=== PATIENT | male | born 1990 | race Hispanic/Latino ===

== ENCOUNTER 2017-01-21 20:39 | Emergency (ER) | payer SELFPAY ==
[~2017-01-21] VITALS: Ht 172.7 cm; Wt 70.0 kg
[2017-01-21 21:08] LABS: HEMATOCRIT 37.2 % (39.0-50.0); HEMOGLOBIN 13.5 g/dl (14.0-18.0); IMMATURE GRANULOCYTES 0.2 % (0.0-1.0); MEAN CORPUSCULAR HGB 32.3 pG CALC (26.0-32.0); MEAN CORPUSCULAR HGB CONC 36.3 g/L CALC (32.0-36.0); NEUT# 2.58 thou/uL (1.82-7.42); RED BLOOD COUNT 4.18 mill/uL (4.70-6.10); RED CELL DISTRI WIDTH 12.5 % (11.5-15.5)
[2017-01-21 21:16] LABS: URINE BILIRUBIN - DIPSTICK NEGATIVE (NEGATIVE); URINE BLOOD DIPSTICK NEGATIVE (NEGATIVE); URINE COLOR YELLOW; URINE GLUCOSE - DIPSTICK NEGATIVE (NEGATIVE); URINE KETONE NEGATIVE (NEGATIVE); URINE LEUK ESTERASE NEGATIVE (NEGATIVE); URINE NITRITE - DIPSTICK NEGATIVE (Negative); URINE PROTEIN - DIPSTICK NEGATIVE (NEG-TRACE); URINE UROBILINOGEN - DIPSTICK 0.2 E.U./dL (0.2)
[2017-01-21 21:17] LABS: URINE CLARITY CLEAR
[2017-01-21 21:19] LABS: BARBITURATES NEGATIVE (NEGATIVE); COCAINE POSITIVE (NEGATIVE); METHADONE NEGATIVE (NEGATIVE); TETRAHYDROCANNABIONOL NEGATIVE (NEGATIVE); TRICYLIC ANTIDEPRESSANTS NEGATIVE (NEGATIVE)
[2017-01-21 21:20] LABS: OXCYCODONE NEGATIVE (NEGATIVE)
[2017-01-21 21:20] LABS: ALBUMIN 4.7 g/dL (3.2-5.0); ALKALINE PHOSPHATASE 152 u/l (38-126); ANION GAP 19 (6-22 (CALC)); BILIRUBIN, TOTAL 0.7 mg/dL (0.0-1.4); BUN 11 mg/dL (9-20); BUN/CREATININE RATIO 15 (12-20 (CALC)); CALCIUM 9.3 mg/dL (8.4-10.2); CARBON DIOXIDE 23 mmol/l (22-30); CHLORIDE 106 mmol/l (95-108); CREATININE 0.7 mg/dL (0.7-1.3); GFR > 60 ML/MIN (>=60 (CALC)); GFR FOR AFR.AMER. > 60 ML/MIN (>=60 (CALC)); GLUCOSE 121 mg/dL (75-110); POTASSIUM 3.7 mmol/l (3.5-5.1); SGOT/AST 301 u/l (17-59); SGPT/ALT 149 u/l (21-72); SODIUM 145 mmol/l (137-146); TOTAL PROTEIN 7.9 g/dL (6.3-8.2)
[2017-01-21 21:32] LABS: MYOGLOBIN 33 ng/mL (0 - 121)
[2017-01-21 22:42] VITALS: BP 134/78
== END 2017-01-21 22:45 | disposition home or self-care (01) | DRG 310 ==
LOC: ED 20:39
PROVIDERS: Emergency Medicine
DX: R00.2 Palpitations (principal); K70.10 Alcoholic hepatitis without ascites; F10.129 Alcohol abuse with intoxication, unspecified; F14.90 Cocaine use, unspecified, uncomplicated

== ENCOUNTER 2018-06-22 22:52 | Emergency (ER) | payer SELFPAY ==
[~2018-06-22] VITALS: Ht 172.7 cm; Wt 76.0 kg
[2018-06-23 00:30] VITALS: BP 138/80
== END 2018-06-23 00:30 | disposition home or self-care (01) | DRG 151 ==
LOC: ED 22:52
DX: R04.0 Epistaxis (principal)

== ENCOUNTER 2018-07-03 01:38 | Emergency (ER) | payer SELFPAY ==
[~2018-07-03] VITALS: Ht 172.7 cm; Wt 77.6 kg
[2018-07-03 02:20] LABS: URINE BILIRUBIN - DIPSTICK NEGATIVE (NEGATIVE); URINE BLOOD DIPSTICK NEGATIVE (NEGATIVE); URINE COLOR YELLOW; URINE GLUCOSE - DIPSTICK NEGATIVE (NEGATIVE); URINE KETONE NEGATIVE (NEGATIVE); URINE LEUK ESTERASE NEGATIVE (NEGATIVE); URINE NITRITE - DIPSTICK NEGATIVE (Negative); URINE PROTEIN - DIPSTICK NEGATIVE (NEG-TRACE); URINE SPECIFIC GRAVITY <=1.005; URINE UROBILINOGEN - DIPSTICK 0.2 E.U./dL (0.2)
[2018-07-03 02:31] LABS: ALBUMIN 4.2 g/dL (3.2-5.0); ALKALINE PHOSPHATASE 227 u/l (38-126); AMYLASE 38 u/l (30-110); ANION GAP 16 (6-22 (CALC)); BILIRUBIN, TOTAL 0.8 mg/dL (0.0-1.4); BUN 4 mg/dL (9-20); BUN/CREATININE RATIO 6 (12-20 (CALC)); CARBON DIOXIDE 23 mmol/l (22-30); CHLORIDE 109 mmol/l (95-108); CREATININE 0.6 mg/dL (0.7-1.3); GFR > 60 ML/MIN (>=60 (CALC)); GFR FOR AFR.AMER. > 60 ML/MIN (>=60 (CALC)); LIPASE 157 u/l (23-300); POTASSIUM 3.7 mmol/l (3.5-5.1); SGOT/AST 326 u/l (17-59); SODIUM 145 mmol/l (137-146); TOTAL PROTEIN 7.6 g/dL (6.3-8.2)
[2018-07-03 02:44] LABS: IMMATURE GRANULOCYTES 2.1 % (0.0-5.0); MEAN CORPUSCULAR HGB 32.5 pG CALC (26.0-32.0); MEAN CORPUSCULAR HGB CONC 33.1 g/L CALC (32.0-36.0); NEUT# 5.19 thou/uL (1.82-7.42); RED BLOOD COUNT 3.14 mill/uL (4.70-6.10); RED CELL DISTRI WIDTH 14.8 % (11.5-15.5)
[2018-07-03 02:48] LABS: HEMATOCRIT 30.8 % (39.0-50.0); HEMOGLOBIN 10.2 g/dl (14.0-18.0); MEAN CELL VOLUME 98.1 fL CALC (80.0-100.0)
[2018-07-03] MEDS ORDERED: PROTONIX40 MG PO (06:16)
[2018-07-03 06:30] VITALS: BP 107/61
== END 2018-07-03 06:30 | disposition home or self-care (01) | DRG 392 ==
LOC: ED 01:38
PROVIDERS: Emergency Medicine
DX: R10.11 Right upper quadrant pain (principal); R11.0 Nausea; K76.0 Fatty (change of) liver, not elsewhere classified
CPT/HCPCS: Q9967; S0164

== ENCOUNTER 2019-08-17 09:16 | Inpatient (IN) | payer MEDICAID ==
[~2019-08-17] VITALS: Ht 172.7 cm; Wt 72.7 kg
[~2019-08-17 09:16] MED LIST: PROTONIX40 MG PO
--- NOTE | 2019-08-17 09:28 | NUR ---
PT TO ROOM WITH A STEADY GAIT.
--- NOTE | 2019-08-17 09:40 | NUR ---
PT ASSESSED. PT GAMBIAN SPEAKING ONLY. PUMP OPERATOR BYPRODUCTS PRESENT FOR TRIAGE. PT AO X 3. REPORTS COUGH SINCE WEDNESDAY. PT SKIN PALE AND SLIGHTLY DIAPHORETIC. RESP RATE 40. BREATH SOUNDS CLEAR AND EQUAL BILAT. O2 SAT 92
[2019-08-17 10:07] LABS: HEMATOCRIT 33.3 % (39.0-50.0); HEMOGLOBIN 11.3 g/dl (14.0-18.0); IMMATURE GRANULOCYTES 0.8 % (0.0-5.0); MEAN CORPUSCULAR HGB 30.1 pG CALC (26.0-32.0); MEAN CORPUSCULAR HGB CONC 33.9 g/dL CAL (32.0-36.0); NEUT# 6.1 thou/uL (1.82-7.42); RED BLOOD COUNT 3.76 mill/uL (4.70-6.10); RED CELL DISTRI WIDTH 12.5 % (11.5-15.5)
[2019-08-17 10:17] LABS: MEAN CELL VOLUME 88.6 fL CALC (80.0-100.0)
[2019-08-17 10:22] LABS: ALBUMIN 4.4 g/dL (3.2-5.0); ALKALINE PHOSPHATASE 168 u/l (38-126); BUN 12 mg/dL (9-20); BUN/CREATININE RATIO 13 (12-20 (CALC)); CARBON DIOXIDE 22 mmol/l (22-30); CHLORIDE 102 mmol/l (95-108); CREATININE 0.9 mg/dL (0.7-1.3); GFR > 60 ML/MIN (>=60 (CALC)); GFR FOR AFR.AMER. > 60 ML/MIN (>=60 (CALC)); POTASSIUM 3.6 mmol/l (3.5-5.1); SGOT/AST 91 u/l (17-59); TOTAL PROTEIN 8.5 g/dL (6.3-8.2)
--- NOTE | 2019-08-17 10:45 | NUR ---
PT RESTING ON STRETCHER AWAITING RESULTS. AT BEDSIDE
[2019-08-17 10:50] LABS: ANION GAP 15 (6-22 (CALC)); BILIRUBIN, TOTAL 0.4 mg/dL (0.0-1.4); SODIUM 135 mmol/l (137-146)
--- NOTE | 2019-08-17 11:34 | NUR ---
PT IN CT
--- NOTE | 2019-08-17 12:42 | NUR ---
PT RESTING ON STRETCHER. ANTIBIOTICS INFUSING. AT BEDSIDE
--- NOTE | 2019-08-17 13:30 | NUR ---
PATIENTS PLACED IN PRONE POSITION PER DR MCGEE INSTRUCTION.
[2019-08-17 13:43] LABS: C-REACTIVE PROTEIN 7.7 mg/dL (0-0.9)
--- NOTE | 2019-08-17 14:40 | NUR ---
PT RESTING COMFORTABLY ON STOMACH. AWAITING ADMISSION
--- NOTE | 2019-08-17 15:35 | NUR ---
REPEAT LACTIC ACID DRAWN
--- NOTE | 2019-08-17 15:58 | NUR ---
SBAR PRINTED TO FLOOR
--- NOTE | 2019-08-17 16:19 | NUR ---
ICU UNABLE TO TAKE REPORT AT THIS TIME
--- NOTE | 2019-08-17 17:03 | NUR ---
REPORT GIVEN TO KITTY KEVIN ICU
--- NOTE | 2019-08-17 17:23 | NUR ---
PT ARRIVED TO ICU FROM ER VIA STRETCHER, AFEBRILE ALERT AND ORIENTED X4, ABLE TO WALK TO BED WITHOUT EXERTION, ON 2 LT OF OXYGEN VIA NC, DENIES PAIN AND DISCOMFORT AT THIS TIME. ORIENTED TO ROOM AND CALL LIGHT. ASKED TO CALL BEFORE GETTING OUT OF BED.
--- NOTE | 2019-08-17 17:25 | NUR ---
PT TAKEN VIA STRETCHER MONITOR IN PLACE TO ICU
--- NOTE | 2019-08-17 19:05 | NUR ---
REPORT RECEIVED FROM Shweta WILLS RN, CARE OF PT ASSUMED @ THIS TIME.
[2019-08-17 20:00] VITALS: BP 108/65
--- NOTE | 2019-08-17 20:00 | NUR ---
UPON ENTERING ROOM PT RESTING IN BED IN A SEMI-SMITH POSITION. PHYSICAL ASSESMENT COMPLETE. RESPIRATIONS REGULAR AND UNLABORED. NO APPARENT DISTRESS OR DISCOMFORT. AFEBRILE. HEMODYNAMICS STABLE. PLAN OF CARE REVIEWED. PT VERBALIZES UNDERSTANDING. DENIES QUESTIONS. PT EDUCATED TO LAY PRONE OFTEN POSSIBLE. PT VERBALIZES UNDERSTANDING AND AGREES. DINNER TRAY AND FRESH WATER PROVIDED. PT DENIES FURTHER NEEDS. CALL FRAGA WITHIN REACH. AGREES TO CALL PRN.
[2019-08-17 22:00] VITALS: BP 115/56
[2019-08-18] VITALS (12 sets, daily range): BP systolic 100–121; BP diastolic 50–71
--- NOTE | 2019-08-18 00:23 | NUR ---
PT APPEARS TO BE SLEEPING COMFORTABLY, NO APPARENT DISTRESS, RESPIRATIONS REGULAR AND UNLABORED. SB-SR 50'S-60'S ON WASH AND GREASER. NIBP STABLE/WNL. SpO2 97% ON O2 @ 2L VIA NC. PT IS LAYING SUPINE/ SEMI-FOWLERS DESPITE AGREEING TO LAY PRONE WHEN POSSIBLE.
--- NOTE | 2019-08-18 04:25 | NUR ---
AM LABS DRAWN. 400ML CLEAR YELLOW URINE EMPTIED FROM URINAL. PT DENIES NEEDS @ THIS TIME. CALL PHILLY ULRICH WITHIN REACH, AGREES TO CALL JOAQUIN.
[2019-08-18 05:58] LABS: BASO% 0 % (0-3); EOS% 0 % (0-8); HEMATOCRIT 31.5 % (39.0-50.0); HEMOGLOBIN 10.6 g/dl (14.0-18.0); IMMATURE GRANULOCYTES 1.1 % (0.0-5.0); LYMPH% 23 % (15-41); MEAN CELL VOLUME 89.5 fL CALC (80.0-100.0); MEAN CORPUSCULAR HGB 30.1 pG CALC (26.0-32.0); MEAN CORPUSCULAR HGB CONC 33.7 g/dL CAL (32.0-36.0); MONO% 6 % (2-13); NEUT# 2.52 thou/uL (1.82-7.42); NEUT% 70 % (42-76); PLATELET COUNT 325 thou/uL (130-400); RED BLOOD COUNT 3.52 mill/uL (4.70-6.10); RED CELL DISTRI WIDTH 12.7 % (11.5-15.5)
[2019-08-18 06:06] LABS: ALKALINE PHOSPHATASE 141 u/l (38-126); BILIRUBIN, TOTAL 0.3 mg/dL (0.0-1.4); BUN 12 mg/dL (9-20); BUN/CREATININE RATIO 23 (12-20 (CALC)); C-REACTIVE PROTEIN 7.2 mg/dL (0-0.9); CARBON DIOXIDE 19 mmol/l (22-30); CHLORIDE 109 mmol/l (95-108); CREATININE 0.5 mg/dL (0.7-1.3); GFR > 60 ML/MIN (>=60 (CALC)); GFR FOR AFR.AMER. > 60 ML/MIN (>=60 (CALC)); SGOT/AST 58 u/l (17-59); SODIUM 137 mmol/l (137-146); TOTAL PROTEIN 6.8 g/dL (6.3-8.2)
[2019-08-18 06:09] LABS: ALBUMIN 3.5 g/dL (3.2-5.0); ANION GAP 13 (6-22 (CALC)); POTASSIUM 4.4 mmol/l (3.5-5.1)
--- NOTE | 2019-08-18 06:50 | NUR ---
REPORT RECEIVED FROM NIGHT NURSE, PT RESTING IN BED, ALL VSS, WILL CONTINUE TO MONITOR.
--- NOTE | 2019-08-18 07:20 | NUR ---
PT UP TO BATHROOM, 1 BM.
--- NOTE | 2019-08-18 08:00 | NUR ---
PT ASSESSED IN BED, ALERT AND ORIENTED X4, MOVES ALL EXTREMITIES. DENIES PAIN OR DISCOMFORT AT THIS TIME. SEE PROCESS INTERVENTIONS FOR FULL ASSESSMENT.
--- NOTE | 2019-08-18 08:30 | NUR ---
DR MCGEE AT BEDSIDE
--- NOTE | 2019-08-18 10:00 | NUR ---
PT RESTING IN BED IN PRONE POSITION, DENIES PAIN OR DISCOMFORT AT THIS TIME.
--- NOTE | 2019-08-18 11:40 | NUR ---
LUNCH AT BEDSIDE, PT RESTING IN BED IN PRONE POSITION. ALL VSS, WILL CONTINUE TO MONITOR.
--- NOTE | 2019-08-18 12:00 | NUR ---
PT ASSESSED, ALERT AND ORIENTED X4, MOVES ALL EXTREMITIES. DENIES PAIN OR DISCOMFORT, AFEBRILE TEMP OF 97.4 TEMPORAL, ON 2LT VIA NC, SATS IN MID 90'S. DENIES PAIN OR DISCOMFORT AT THIS TIME. CALL LIGHT WITHIN REACH, WILL CONTINUE TO MONITOR.
--- NOTE | 2019-08-18 14:00 | NUR ---
PT UP TO BATHROOM, 1BM. BACK TO BED IN PRONE POSITION.
[2019-08-18] MEDS ORDERED: ALBUTEROL108 MCG/AC IN (14:06)
[2019-08-18] MEDS ORDERED: TESSALON PERLE100 MG PO (14:11)
--- NOTE | 2019-08-18 16:00 | NUR ---
PT RESTING IN BED IN PRONE POSITION, DINNER AT BEDSIDE.
--- NOTE | 2019-08-18 18:00 | NUR ---
PT LEADS OFF, IN TO CHANGE ALL LEADS. PT DENIES PAIN OR DISCOMFORT AT THIS TIME. WILL CONTINUE TO MONITOR.
--- NOTE | 2019-08-18 19:07 | NUR ---
REPORT GIVEN BY JAG. PATIENT LAYING PRONE IN BED. RESP EVEN AND UNLABORED, 2L VIA NC. NO S/S OF DISTRESS NOTED. PATIENT INFORMED TO CALL WITH ANY QUESTIONS OR CONCERNS. PLAN OF CARE DISCUSSED.FALL PRECATUIONS IN PLACE.
--- NOTE | 2019-08-18 22:00 | NUR ---
PATIENT IN BED WATCHING TV. RESP EVEN AND UNLABORED. NO S/S OF DISTRESS NOTED.
--- NOTE | 2019-08-18 23:15 | NUR ---
patient up to the bathroom.
[2019-08-19] VITALS (14 sets, daily range): BP systolic 110–126; BP diastolic 38–73
--- NOTE | 2019-08-19 03:13 | NUR ---
PATIENT RESTING WITH EYES CLOSED. RESP EVEN AND UNLABORED. NO S/S OF DISTRSS.
--- NOTE | 2019-08-19 04:42 | NUR ---
MORNING LABS DRAWN
--- NOTE | 2019-08-19 07:40 | NUR ---
pt resting in bed with eyes closed; easily aroused; D DORITA Jacobs present at bedside to interpret; pt alert and oriented; denies pain; no n/v noted; resp even and unlabored; lungs clear; skin color wnl; o2 per nc at 2L; frequent coughing noted; pt states yellow sputum/ not observed per procedure writer; covid 19+ explained; hr reg; strong pulses; no edema noted; sb on monitor; abd soft with bs present; no bm noted per procedure writer; pt admits to voiding without complication; no urine to inspect at this time; urinal at bedside; #20 flushed and patent to rac; plan of care/ meds explained; pt explained to lay in prone position; call light within reach; will continue to monitor
--- NOTE | 2019-08-19 08:05 | NUR ---
awake in bed eating breakfast; no apparent distress noted; sb on monitor; call light within reach; will continue to monitor
[2019-08-19 09:30] LABS: BASO% 0 % (0-3); EOS% 0 % (0-8); HEMATOCRIT 32.3 % (39.0-50.0); HEMOGLOBIN 10.9 g/dl (14.0-18.0); IMMATURE GRANULOCYTES 1.1 % (0.0-5.0); LYMPH% 14 % (15-41); MEAN CELL VOLUME 89.5 fL CALC (80.0-100.0); MEAN CORPUSCULAR HGB 30.2 pG CALC (26.0-32.0); MEAN CORPUSCULAR HGB CONC 33.7 g/dL CAL (32.0-36.0); MONO% 4 % (2-13); NEUT# 6.43 thou/uL (1.82-7.42); NEUT% 81 % (42-76); PLATELET COUNT 363 thou/uL (130-400); RED BLOOD COUNT 3.61 mill/uL (4.70-6.10); RED CELL DISTRI WIDTH 12.8 % (11.5-15.5)
[2019-08-19 09:42] LABS: ALBUMIN 3.3 g/dL (3.2-5.0); ALKALINE PHOSPHATASE 140 u/l (38-126); ANION GAP 12 (6-22 (CALC)); BILIRUBIN, TOTAL 0.2 mg/dL (0.0-1.4); BUN 16 mg/dL (9-20); BUN/CREATININE RATIO 27 (12-20 (CALC)); C-REACTIVE PROTEIN 3.3 mg/dL (0-0.9); CARBON DIOXIDE 19 mmol/l (22-30); CHLORIDE 110 mmol/l (95-108); CREATININE 0.6 mg/dL (0.7-1.3); GFR > 60 ML/MIN (>=60 (CALC)); GFR FOR AFR.AMER. > 60 ML/MIN (>=60 (CALC)); POTASSIUM 4.4 mmol/l (3.5-5.1); SGOT/AST 127 u/l (17-59); SODIUM 137 mmol/l (137-146); TOTAL PROTEIN 6.3 g/dL (6.3-8.2)
--- NOTE | 2019-08-19 10:06 | NUR ---
awake in prone position talking on cell phone; no apparent distress noted; sb on monitor; o2 per nc; call light within reach; will continue to monitor
--- NOTE | 2019-08-19 11:59 | NUR ---
awake sitting on side of bed eating lunch; no apparent distress noted; denies pain; sb on monitor; iv patent with abt infusing withuot complication; no redness or edema noted at site; afebrile; monitoring attachments disconnected for pt to ambulate to bathroom; call light within reach; will continue to monitor
--- NOTE | 2019-08-19 14:25 | NUR ---
awake in bed; no apparent distress noted; sb on monitor; iv patent; call light within reach; will continue to monitor
--- NOTE | 2019-08-19 16:06 | NUR ---
pt awake in bed; no apparenyt distress noted; pt admits to upset stomach; points to [place] on food tray; iv intact and patent; no redness or edema noted at site; sb on monitor; call light within reach; will continue to monitor
--- NOTE | 2019-08-19 17:49 | NUR ---
awake in bed conversing on cell phone; no apparent distress noted; sb on monitor; iv intact and patent; dinner tray at bedside; prone position encouraged after dinner; call light within reach
--- NOTE | 2019-08-19 20:30 | NUR ---
RESTING IN BED IN PRONE POSITON. RESP NON-LABORED. LUNGS CLEAR. O2 ON AT 2 L NC. O2 SAT 98-99% IV SITE IN RAC WITH NS AT O, SITE HEALTHY. SB ON MONITOR. DENIES NEEDS AT THIS TIME. TAKING PO FLUIDS WELL. INSTRUCTED TO REST IN PRONE POSITON MUCH POSSIBLE. PATIENT NODS HEAD IN UNDERSTANDIG. CALL FRAGA IN REACH.
--- NOTE | 2019-08-19 22:00 | NUR ---
RESTING IN BED IN PRONE POSTION. O2 SATS 100% SB ON MONITOR.
--- NOTE | 2019-08-19 23:57 | NUR ---
PATIENT RESTING IN PRONE POSTIONE WITH EYES CLOSED. RESP NON-LABORED. O2 IN USE WITH O2 SAT 100%. SB ON MONITOR.
[2019-08-20] VITALS (10 sets, daily range): BP systolic 111–149; BP diastolic 55–84
--- NOTE | 2019-08-20 02:00 | NUR ---
SLEEPING. NO CHAGES TO REPORT.
--- NOTE | 2019-08-20 04:30 | NUR ---
AWAKENS TO NAME. BLOOD DRAWN FOR AM LABS VIA PERIPHERAL STICK IN LFA. DENIES DISCOMFORTS. VSS. RESP NON-LABORED. SB ON MONITOR.
[2019-08-20 05:27] LABS: ANION GAP 12 (6-22 (CALC)); BUN 13 mg/dL (9-20); BUN/CREATININE RATIO 21 (12-20 (CALC)); CARBON DIOXIDE 21 mmol/l (22-30); CHLORIDE 109 mmol/l (95-108); CREATININE 0.6 mg/dL (0.7-1.3); GFR > 60 ML/MIN (>=60 (CALC)); GFR FOR AFR.AMER. > 60 ML/MIN (>=60 (CALC)); POTASSIUM 3.9 mmol/l (3.5-5.1); SODIUM 138 mmol/l (137-146)
--- NOTE | 2019-08-20 05:52 | NUR ---
PATIENT HAS SLEPT IN PRONE POSITION MOST OF THE NIGHT. MAITINING O2 SATS 97-100%
--- NOTE | 2019-08-20 07:50 | NUR ---
pt awake in bed; no apparent distress noted; pt offers no complaints; assessment completed at this time; A DORITA Zazueta to interpret; pt alert and oriented; denies pain; admits to feeling good; resp even and unlabored; lungs clear; skin color wnl; o2 per nc at 2L; GREASE MONKEY harsh cough noted; hr reg; strong pulses; no edema noted; sb on monitor; abd soft with bs present; no bm noted per typewriter tester; pt voiding cl yellow urine without complication; urinal at bedside; #20 patent to rac with ivf at [facility]; no redness or edema noted at site; plan of care/ meds explained; po fluids provided; call light within reach; will continue to monitor
--- NOTE | 2019-08-20 08:02 | NUR ---
awake in bed eating breakfast; no apparent distress noted; call light within reach; will continue to monitor
--- NOTE | 2019-08-20 09:08 | NUR ---
awake in bed; offers no complaints; am meds explained and administered; call light within reach
--- NOTE | 2019-08-20 10:15 | NUR ---
awake in bed; no apparent distress noted; iv intact and patent; sb on monitor; call light within reach; will continue to monitor
--- NOTE | 2019-08-20 11:50 | NUR ---
awake in bed; lunch provided; pt disconnected from monitoring attachments to use bathroom; transfer to med surg explained; iv intact and patent; no redness or edema noted at site; pt offers no complaints; call light within reach; will continue to monitor
--- NOTE | 2019-08-20 12:22 | NUR ---
report called to Master Rausch LPN; pt to be transferred to med surg tele [id number]
--- NOTE | 2019-08-20 12:56 | NUR ---
PT ARRIVED TO MS2 VIA WHEELCHAIR ACCOMPANIED BY ICU NURSE. ORIENTED PT TO ROOM AND CALL LIGHT, DISCUSSED POC. PT REQUESTING TO SHOWER. IV COVERED AND ASSISTED TO SHOWER. PT VOICES NO NEEDS OR COMPLAINTS AT THIS TIME. CALL LIGHT IN REACH,CONTINUE TO MONITOR.
--- NOTE | 2019-08-20 13:00 | NUR ---
pt transferred to med surg tele room 282 via wc in stable condition; pt belongings with pt; bedside update provided to Master Rausch LPN
--- NOTE | 2019-08-20 14:11 | NUR ---
PT IN RECLINER AT BEDSIDE, VOICES NO NEEDS OR COMPLAINTS AT THIS TIME. CALL LIGHT IN REACH,CONTINUE TO MONITOR.
--- NOTE | 2019-08-20 22:32 | NUR ---
pt in bed with eyes open. speaks occitan and staff to assist with interpretation. medications given and tolerated well. continent of b/b anf had bowel movement today with no complications . respiration are even and non labored. non productive cough noted. call light within reach and bed in lowest position.
--- NOTE | 2019-08-21 01:41 | NUR ---
PT IN BED WITH EYES CLOSED. PT CONTINUES ON TELEMETRY AND SHOWING SINUS BRADYCARDIA AT 43. PT WAS REPOSITIONED IN BED AND HOB ELEVATED AND HEART RATE IMPROVED. PT DENIES PAIN OR DISCOMFORT. NO RESPIRATORY DISTRESS NOTED. PT HAS NON PRODUCTIVE COUGH NOTED. BED IN LOWEST POSITION AND CALL LIGHT WITHIN REACH. WILL CONTINUE TO OBSERVE.
[2019-08-21 04:20] VITALS: BP 136/75
--- NOTE | 2019-08-21 04:49 | NUR ---
pt in bed with eyes closed and easily aorused. fluids given and tolerated well. continues on telemetry with SB at 49. pt denies any discomfort or concerns. Continues with non productive cough. continent of b/b and ambulates to toilet with no complications. call light is within reach and bed jessica lowest position. will continue to observe.
[2019-08-21 10:46] VITALS: BP 101/65
[2019-08-21] MEDS ORDERED: DEXAMETHASON6 MG PO (10:51)
[2019-08-21 11:01] VITALS: BP 127/62
--- NOTE | 2019-08-21 15:40 | NUR ---
PATIENT ALERT AND ORIENTED, SPEAKS MINIMAL GREENLANDIC. NURSE ABLE TO COMMUNICATE WELL WITH PATIENT. NO C/O PAIN OR DISCOMFORT. LUNGS SOUNDS DIMINISHED BUT CLEAR. PT STATED HE URINATED 3 TIMES AND HAD ONE BOWEL MOVEMENT AT 9AM. WAS OOB TO RECLINER TWICE TODAY. TELE WAS SINUS KENROY THIS MORNING BUT WAS SR BY 1214PM PER ER.
--- NOTE | 2019-08-21 15:43 | NUR ---
PATIENT WAS DISCHARGE AT 1514. IV DISCONTINUED, NO PAIN OR DISCOMFORT NOTED. TELE REMOVED AND ER CALLED. TELE GIVEN TO PCT. PATIENT PACKED HIS OWN BELONGINGS. PT GIVEN DISCHARGE PAPER WORK AND SIGNED, EXPRESSING UNDERSTANDING OF DC INSTRUCTIONS. AWARE OF SCRIPTS AND INSTRUCTIONS. AWARE OF COVID DISCHARGE INSTRUCTIONS. GIVEN A SIGNED WORK NOTE TO RETURN AT 09/05/2019. WAS TRANSPORTED TO ER FOR FAMILY PICKUP VIA WHEELCHAIR.
== END 2019-08-21 15:14 | disposition home or self-care (01) | DRG 177 ==
LOC: ED 09:16 → ED-I 15:48 → ED 15:50 → ED-I 15:51 → ICU 16:10 → MS2 08-20 12:56
PROVIDERS: Emergency Medicine; Internal Medicine; ADMIT Internal Medicine; ATTEND Internal Medicine
DX: U07.1 COVID-19 (principal); J12.89 Other viral pneumonia; J96.01 Acute respiratory failure with hypoxia
CPT/HCPCS: J1650; Q9967